=== PATIENT | male | born 1960 | race Two or more races ===

== ENCOUNTER 2023-04-04 15:25 | Observation (INO) | payer BC, OTHER ==
[~2023-04-04] VITALS: Ht 177.8 cm; Wt 142.4 kg
[2023-04-04] MEDS ORDERED: ACETAMINOPHEN 650 mg PER 20.3 mL UD PO ONE (15:45)
[2023-04-04 16:14] LABS: Basophils # (auto) 0 10 ^3/uL (0-0.2); Basophils % (auto) 0.5 % (0.0-2.0); Eosinophils # (auto) 0 10 ^3/uL (0-0.8); Eosinophils % (auto) 0.4 % (0.0-7.0); Hematocrit 41.6 % (41.0-53.0); Hemoglobin 14.1 g/dL (13.5-17.5); Lymphocytes % (auto) 10.9 % (10.0-50.0); Mean Corpuscular Hemoglobin 29.8 pg (28.0-32.0); Mean Corpuscular Hgb Conc. 33.9 g/dL (32.0-36.0); Monocytes # (auto) 0.5 10 ^3/uL (0-1.3); Monocytes % (auto) 5.1 % (0.0-12.0); Neutrophils # (auto) 7.5 10 ^3/uL (1.6-8.6); Neutrophils % (auto) 83.1 % (37.0-80.0); Red Blood Cells 4.73 10^6/uL (4.5-5.90); Red Cell Distribution Width 16.1 % (11.8-14.3)
[2023-04-04] MEDS ORDERED: PIPERACILLIN-TAZOB 3.375GM 100 ML IV ONE (16:15)
[2023-04-04 16:34] LABS: Albumin 3.3 g/dL (3.4-5.0); BUN/Creatinine Ratio 23.8 (10.0-20.0); Calcium 8.7 mg/dL (8.5-10.1); Potassium 3.6 mmol/L (3.5-5.1)
[2023-04-04 16:37] LABS: Bilirubin, Total 0.6 mg/dL (0.2-1.0); Total Protein 6.7 g/dL (6.4-8.2)
[2023-04-04 16:56] LABS: Urine Bacteria NONE SEEN /hpf (None Seen); Urine Blood Negative /uL (Negative); Urine WBC <1 /hpf (0 - 3)
[2023-04-04] MEDS ORDERED: FUROSEMIDE 100 MG/10ML VIAL IV ONE (17:00)
[2023-04-04] MEDS ORDERED: ENOXAPARIN SOD 100 MG/1 ML SYRINGE SC ONE (18:15)
[2023-04-04] MEDS ORDERED: IOHEXOL 350 MG/ML 100ML IJ ONE (18:37)
[2023-04-04] MEDS ORDERED: ASPirin 325 MG TAB PO ONE (18:45)
[2023-04-04] MEDS ORDERED: MORPHINE SULFATE INJ 2 MG/ml SYRG IV PRN ×2 (19:15→19:30)
[2023-04-04] MEDS ORDERED: NITROGLYCERIN 0.4 MG SL TAB SL PRN (19:15)
[2023-04-04] MEDS ORDERED: ONDANSETRON HCL 4 MG/2 ML VIAL IV PRN (19:30)
[2023-04-04 19:52] LABS: INR 1.05 (0.9-1.15)
[2023-04-04] MEDS: HYDROcodone-ACET 5/325MG TAB PO PRN (20:28)
[2023-04-04 21:01] VITALS: BP 129/61
[2023-04-04 22:10] VITALS: BP 110/50
[2023-04-04 22:33] VITALS: BP 110/50
[2023-04-05] MEDS: HYDROcodone-ACET 5/325MG TAB PO PRN ×3 (00:09→09:30)
[2023-04-05] MEDS: IPRATROPIUM BROM 0.5 MG/2.5ML INH SOL NEB PRN ×3 (00:14→11:32)
[2023-04-05 05:00] VITALS: BP 145/71
[2023-04-05 05:40] LABS: Basophils # (auto) 0 10 ^3/uL (0-0.2); Basophils % (auto) 0.2 % (0.0-2.0); Eosinophils # (auto) 0 10 ^3/uL (0-0.8); Hemoglobin 12.9 g/dL (13.5-17.5); Lymphocytes # (auto) 0.9 10 ^3/uL (0.4-5.4); Lymphocytes % (auto) 6.3 % (10.0-50.0); Mean Corpuscular Hemoglobin 30.3 pg (28.0-32.0); Mean Corpuscular Hgb Conc. 33.9 g/dL (32.0-36.0); Mean Corpuscular Volume 89.5 fL (80.0-100.0); Monocytes # (auto) 0.7 10 ^3/uL (0-1.3); Neutrophils # (auto) 12.6 10 ^3/uL (1.6-8.6); Neutrophils % (auto) 88.5 % (37.0-80.0); Red Blood Cells 4.25 10^6/uL (4.5-5.90); Red Cell Distribution Width 16.3 % (11.8-14.3); White Blood Cell 14.3 10^3/uL (4.4-10.8)
[2023-04-05] MEDS: ALBUTEROL SULF 2.5 MG/0.5ML(0.5%) NEB SOLN NEB SCH ×3 (05:56→11:32)
[2023-04-05] MEDS ORDERED: FUROSEMIDE 40 MG/4 ML VIAL IV SCH (06:00)
[2023-04-05 06:01] LABS: Potassium 3.6 mmol/L (3.5-5.1)
[2023-04-05 06:09] LABS: Albumin 2.8 g/dL (3.4-5.0); BUN/Creatinine Ratio 24.5 (10.0-20.0); Bilirubin, Total 0.7 mg/dL (0.2-1.0)
[2023-04-05] MEDS ORDERED: VANCOMYCIN PER PHARMACY 0 MG IV SCH (08:00)
[2023-04-05] MEDS ORDERED: VANCOMYCIN 1GM/250ML 250 ML IV ONE (08:15)
[2023-04-05 09:00] VITALS: BP 130/65
[2023-04-05] MEDS: PIPERACILLIN-TAZOB 3.375GM 100 ML IV SCH ×3 (09:31→14:12)
[2023-04-05] MEDS ORDERED: ENOXAPARIN SOD 40 MG/0.4 ML SYRINGE SC SCH (10:00)
[2023-04-05] MEDS ORDERED: LEVO500T31 PO (12:26)
[2023-04-05 12:39] VITALS: BP 116/53
[2023-04-05 13:36] LABS: Hepatitis C Antibody Negative (Negative)
[2023-04-05] MEDS ORDERED: VANCOMYCIN 1GM/250ML 250 ML IV SCH (19:00)
== END 2023-04-05 16:53 | disposition home or self-care (01) ==
LOC: ER 15:25 → TELE 19:19 → UNDOADMIN 19:19 → TELE-WESTW 19:19 → TELE 22:09 → UNDODISIN 04-05 16:53
PROVIDERS: ADMIT Internal Medicine; ATTEND Internal Medicine
DX: I21.4 Non-ST elevation (NSTEMI) myocardial infarction (principal); Z20.822 Contact with and (suspected) exposure to COVID-19; J18.9 Pneumonia, unspecified organism; I11.0 Hypertensive heart disease with heart failure; I50.9 Heart failure, unspecified; R74.8 Abnormal levels of other serum enzymes; E66.9 Obesity, unspecified; E11.9 Type 2 diabetes mellitus without complications; E78.5 Hyperlipidemia, unspecified; R09.02 Hypoxemia; R50.9 Fever, unspecified; R09.89 Other specified symptoms and signs involving the circulatory and respiratory systems; R06.00 Dyspnea, unspecified; R42 Dizziness and giddiness; F17.210 Nicotine dependence, cigarettes, uncomplicated; Z79.84 Long term (current) use of oral hypoglycemic drugs; Z79.899 Other long term (current) drug therapy; Z98.890 Other specified postprocedural states; Z98.49 Cataract extraction status, unspecified eye; Z68.45 Body mass index [BMI] 70 or greater, adult
CPT/HCPCS: 36415; 70450; 71045; 71275; 80053; 81001; 82962; 83605; 83880; 84484; 85025; 85379; 85610; 86803; 87040; 87340; 87426; 87804; 93005; 93306; 93970; 94640; 94660; 96365; 96366; 96367; 96372; 96375; 96376; 99291; G0378; J1650; J1940; J2543; J3370; J7030; J7644; Q9967